=== PATIENT | female | born 1970 | race Caucasian/White ===

== ENCOUNTER 2017-01-06 08:02 | Emergency (ER) | payer SELFPAY ==
[~2017-01-06] VITALS: Ht 144.8 cm; Wt 54.6 kg
[2017-01-06 08:07] VITALS: BP 123/79
== END 2017-01-06 09:56 | disposition left against medical advice (07) ==
LOC: EME 08:02
DX: M54.5 Low back pain (principal); Z53.21 Procedure and treatment not carried out due to patient leaving prior to being seen by health care provider
CPT/HCPCS: 81003; 84703